=== PATIENT | female | born 1960 | race Two or more races ===

== ENCOUNTER 2020-12-31 10:42 | Emergency (ER) | payer MEDICAID, OTHER ==
[~2020-12-31] VITALS: Ht 167.6 cm; Wt 83.0 kg
[2020-12-31 11:34] LABS: Basophils # (auto) 0.1 10 ^3/uL (0-0.2); Basophils % (auto) 0.9 % (0.0-2.0); Eosinophils # (auto) 0.1 10 ^3/uL (0-0.8); Eosinophils % (auto) 1.5 % (0.0-7.0); Hematocrit 43.3 % (36.0-46.0); Hemoglobin 14.6 g/dL (12.2-16.2); Lymphocytes # (auto) 1.8 10 ^3/uL (0.4-5.4); Lymphocytes % (auto) 31.4 % (10.0-50.0); Mean Corpuscular Hemoglobin 30.7 pg (28.0-32.0); Mean Corpuscular Hgb Conc. 33.7 g/dL (32.0-36.0); Mean Corpuscular Volume 91.1 fL (80.0-100.0); Monocytes # (auto) 0.2 10 ^3/uL (0-1.3); Monocytes % (auto) 4.1 % (0.0-12.0); Neutrophils # (auto) 3.6 10 ^3/uL (1.6-8.6); Neutrophils % (auto) 62.1 % (37.0-80.0); Nucleated Red Blood Cells % 0.1 %; Red Blood Cells 4.75 10^6/uL (4.0-5.20); Red Cell Distribution Width 13.1 % (11.8-14.3); White Blood Cell 5.9 10^3/uL (4.4-10.8)
[2020-12-31 11:52] LABS: Albumin 4.1 g/dL (3.4-5.0); Anion Gap 7 (5-15); Blood Urea Nitrogen 14 mg/dL (7-18); Carbon Dioxide 22 mmol/L (21-32); Chloride 106 mmol/L (98-107); Glucose 253 mg/dL (74-106); Potassium 4.2 mmol/L (3.5-5.1); Sodium 135 mmol/L (136-145)
[2020-12-31 11:58] LABS: Alanine Aminotransferase 27 U/L (13-56); Alkaline Phosphatase 97 U/L (45-117); Aspartate Aminotransferase 12 U/L (15-37); BUN/Creatinine Ratio 18.7; Bilirubin, Total 0.5 mg/dL (0.2-1.0); GFR African American 102 mL/min; GFR Non-African American 84 mL/min; Total Protein 8.1 g/dL (6.4-8.2)
[2020-12-31 16:45] VITALS: BP 142/85
== END 2020-12-31 17:56 | disposition home or self-care (01) ==
LOC: ER 10:42
DX: M47.812 Spondylosis without myelopathy or radiculopathy, cervical region (principal); E11.9 Type 2 diabetes mellitus without complications
CPT/HCPCS: 36415; 70450; 72125; 80053; 84484; 85025; 93005

== ENCOUNTER 2025-08-01 10:13 | Inpatient (IN) | payer MEDICAID ==
[~2025-08-01] VITALS: Ht 167.6 cm; Wt 83.1 kg
[~2025-08-01 10:13] MED LIST: ATOR20TA50 PO; DOXY-286 PO; DULA1INJ SC; GAB100C PO; HYDR12.55 PO; INSU1INJ19 SC; LISI20TA56 PO; METF-372 PO
[2025-08-01 11:03] LABS: Hematocrit 40.0 % (36.0-46.0); Hemoglobin 13.2 g/dL (12.2-16.2); Mean Corpuscular Hemoglobin 29.6 pg (28.0-32.0); Mean Corpuscular Volume 89.7 fL (80.0-100.0); Nucleated Red Blood Cells % 0.0 %
[2025-08-01 11:07] LABS: Chloride 102 mmol/L (98-107); Potassium 4.4 mmol/L (3.5-5.1); Sodium 137 mmol/L (136-145)
[2025-08-01 11:08] LABS: Anion Gap 9 (5-15); Carbon Dioxide 26 mmol/L (20-31)
[2025-08-01 11:09] LABS: Calcium 9.7 mg/dL (8.7-10.4)
--- NOTE | 2025-08-01 11:13 | ED.PDOC ---
GI ASSESSMENT HPI Comments This is a 64 year old female presenting to the ED with chief complaint of abdominal pain. Patient reports that she has been experiencing RUQ abdominal pain with associated nausea for the past 6 days. Patient relays that she had a previous UTI that she finished treatment for with Macrobid, last dose this morning. Patient states her last BM was this morning and was normal. Patient denies any vomiting, diarrhea, chest pain, dizziness, fever, dysuria, or chills. Chief Complaint: Abdominal Pain Time Seen by MD: 11:11 Primary Care Provider: UNKNOWN Reviewed Notes: Nurses Notes, Medications, Allergies Allergies: Coded Allergies: NO KNOWN ALLERGIES (Unverified , 12/31/20) Home Meds Active Scripts Doxycycline Hyclate (DOXYCYCLINE HYCLATE) 100 Mg Tab, 1 TAB PO BID, #14 TAB Prov:SANTI OLIVEROS MD 08/17/24 Reported Medications Dulaglutide (Trulicity) 0.75 Mg/0.5 Ml Inj, SC QWEEKLY 08/15/24 Insulin Glargine (Basaglar Kwikpen) 100 Unit/Ml Inj, 20 UNITS SC HS 08/15/24 Gabapentin (Gabapentin) 100 Mg Cap, 1-3 CAP PO HS Take 1 to 3 capsules by mouth every night. 08/15/24 Atorvastatin Calcium (ATORVASTATIN CALCIUM) 20 Mg Tab, 1 TAB PO DAILY 08/15/24 Lisinopril (Lisinopril) 20 Mg Tab, 10 MG PO DAILY, TAB 08/15/24 Metformin Hydrochloride (Metformin Hcl) 1,000 Mg Tab, 1 TAB PO BID 08/15/24 Hydrochlorothiazide (Hydrochlorothiazide) 12.5 Mg Tab, 1 TAB PO DAILY 08/15/24 Information Source: Patient, Spouse Mode of Arrival: Ambulatory Timing: Days Duration: Since onset Prehospital treatment: None Quality: Sharp Vomitus: None Stool: Normal Severity: Moderate Recent: None Recent Hx of: None Pain Location: RUQ Modifying Factors: Nothing Associated sign and symptoms: Nausea, Abdominal Pain Past Medical History PAST MEDICAL HISTORY: DM, UTI'S Surgical History: Denies all surgeries 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 Family History Family History: Reviewed,noncontributory to illness Social History Smoker: Non-Smoker Alcohol: Denies ETOH Use Drugs: Denies Drug Use Lives In: Home Constitutional: denies: chills, diaphoresis, fatigue, fever, malaise, sweats, weakness, others EENTM: denies: blurred vision, double vision, ear bleeding, ear discharge, ear drainage, ear pain, ear ringing, eye pain, eye redness, hearing loss, mouth pain, mouth swelling, nasal discharge, nose bleeding, nose congestion, nose pain, photophobia, tearing, throat pain, throat swelling, voice changes, others Respiratory: denies: cough, hemoptysis, orthopnea, SOB at rest, shortness of breath, SOB with excertion, stridor, wheezing, others Cardiovascular: denies: chest pain, dizzy spells, diaphoresis, Dyspnea on exertion, edema, irregular heart beat, left arm pain, lightheadedness, palpitations, PND, syncope, others Gastrointestinal: reports: abdominal pain, nausea; denies: abdomen distended, blood streaked bowels, constipated, diarrhea, dysphagia, difficulty swallowing, hematemesis, melena, poor appetite, poor fluid intake, rectal bleeding, rectal pain, vomiting, others Genitourinary: denies: abnormal vagina bleeding, burning, dyspareunia, dysuria, flank pain, frequency, hematuria, incontinence, pain, , vagina discharge, urgency, others Neurological: denies: dizziness, fainting, headache, left sided numbness, left sided weakness, numbness, paresthesia, pre-existing deficit, right sided numbness, right sided weakness, seizure, speech problems, tingling, tremors, weakness, others Musculoskeletal: denies: back pain, gout, joint pain, joint swelling, muscle pain, muscle stiffness, neck pain, others Integumetry: denies: bruises, change in color, change in hair/nails, dryness, laceration, lesions, lumps, rash, wounds, others Allergic/Immunocompromised: denies: Difficulty Healing, Frequent Infections, Hives, Itching, others Hematologic/Lymphatic: denies: anemia, blood clots, easy bleeding, easy bruising, swollen glands, others Endocrine: denies: excessive hunger, excessive sweating, excessive thirst, excessive urination, flushing, intolerance to cold, intolerance to heat, unexplained weight gain, unexplained weight loss, others Psychiatric: denies: anxiety, bipolar disorder, depression, hopeless, panic disorder, schizophrenia, sleepless, suicidal, others All Other Systems: Reviewed and Negative Physical Exam General Appearance: No Apparent Distress, Normal HEENT: Normal ENT Inspection, Pharynx Normal, TMs Normal Neck: Full Range of Motion, Non-Tender, Normal, Normal Inspection Respiratory: Chest Non-Tender, Lungs Clear, No Accessory Muscle Use, No Respiratory Distress, Normal Breath Sounds Cardiovascular: No Edema, No JVD, No Murmur, No Gallop, Normal Peripheral Pulses, Regular Rate/Rhythm Breast Exam: Deferred Gastrointestinal: No Organomegaly, No Pulsatile Mass, Normal Bowel Sounds, Soft, Tenderness (RUQ tenderness) Genitalia: Deferred Pelvic: Deferred Rectal: Deferred Extremities: No calf tenderness, Normal capillary refill, Normal inspection, Normal range of motion, Non-tender, No pedal edema Musculoskeletal : Apperance: Normal Neurologic: Alert, drag out worker II-XII nml as Tested, No Motor Deficits, Normal Affect, Normal Mood, No Sensory Deficits Cerebellar Function: Normal Reflexes: Normal Skin: Dry, Normal Color, Warm Lymphatic: No Adenopathy Was a procedure done? Was a procedure done?: No GI differential Dx Differential Diagnosis: Gastritis/PUD, Gastroenteritis, GI hemorrhage, Hepatitis, Pancreatitis, PID, UTI, Urolithiasis, Dehydration, Electrolyte Im balance, Food Poisoning, Parasitic X-Ray, Labs, Meds, VS Vital Signs Date Time Temp Pulse Resp B/P (MAP) Pulse Ox O2 Delivery O2 Flow Rate FiO2 08/01/25 11:59 78 18 0/0 08/01/25 10:14 97.8 94 18 147/80 98 97.8 Lab Test 08/01/25 10:47 Range/Units White Blood Count 12.5 H 4.4-10.8 10^3/uL Red Blood Count 4.46 4.0-5.20 10^6/uL Hemoglobin 13.2 12.2-16.2 g/dL Hematocrit 40.0 36.0-46.0 % Mean Corpuscular Volume 89.7 80.0-100.0 fL Mean Corpuscular Hemoglobin 29.6 28.0-32.0 pg Mean Corpuscular Hemoglobin Concent 33.0 32.0-36.0 g/dL Red Cell Distribution Width 13.7 11.8-14.3 % Platelet Count 276 140-450 10^3/uL Mean Platelet Volume 8.6 6.9-10.8 fL Neutrophils (%) (Auto) 84.9 H 37.0-80.0 % Lymphocytes (%) (Auto) 7.6 L 10.0-50.0 % Monocytes (%) (Auto) 4.2 0.0-12.0 % Eosinophils (%) (Auto) 2.8 0.0-7.0 % Basophils (%) (Auto) 0.5 0.0-2.0 % Neutrophils # (Auto) 10.6 H 1.6-8.6 10 ^3/uL Lymphocytes # (Auto) 0.9 0.4-5.4 10 ^3/uL Monocytes # (Auto) 0.5 0-1.3 10 ^3/uL Eosinophils # (Auto) 0.4 0-0.8 10 ^3/uL Basophils # (Auto) 0.1 0-0.2 10 ^3/uL Nucleated Red Blood Cells 0.0 % Sodium Level 137 136-145 mmol/L Potassium Level 4.4 3.5-5.1 mmol/L Chloride Level 102 98-107 mmol/L Carbon Dioxide Level 26 20-31 mmol/L Anion Gap 9 5-15 Blood Urea Nitrogen 15 9-23 mg/dL Creatinine 0.79 0.550-1.02 mg/dL Glomerular Filtration Rate Calc 85 >90 mL/min BUN/Creatinine Ratio 19.0 10.0-20.0 Serum Glucose 289 H 74-106 mg/dL Calcium Level 9.7 8.7-10.4 mg/dL Current Medications Medications (Trade) Dose Ordered Sig/Nayeli Route Start Time Stop Time Status Last Admin Sodium Chloride 1,000 ml @ 1,000 mls/hr Q1H ONCE IV 08/01/25 11:15 08/01/25 12:14 DC 08/01/25 11:59 Morphine Sulfate 4 mg ONCE ONCE IV 08/01/25 11:15 08/01/25 11:16 DC 08/01/25 11:59 Ondansetron HCl (Zofran) 4 mg ONCE ONCE IV 08/01/25 11:15 08/01/25 11:16 DC 08/01/25 12:00 Time of 1ST Reevaluation: 12:10 Reevaluation 1ST: Unchanged Patient Education/Counseling: Diagnosis, Treatment Family Education/Counseling: Diagnosis, Treatment SEPSIS Sepsis Screen Date sepsis recognized/suspect: Aug 01, 2025 Time Sepsis recognized/suspect: 1016 Recent Procedure: No On Antibiotic Therapy: No Respiratory Rate >20: No Heart Rate >90: Yes Temp<36 C (96.8 F) or >38.3 C: No SBP <90 or MAP <65 mmHG: No New Acute Mental Status Change: No Is the patient on CPAP, BIPAP,: No Physician Orders Urinalysis (08/01/25 10:39) Ct Ab Pel With Iv Con Only (08/01/25 11:06) Vital Signs Date Time Temp Pulse Resp B/P (MAP) Pulse Ox O2 Delivery O2 Flow Rate FiO2 08/01/25 11:59 78 18 0/0 08/01/25 10:14 97.8 94 18 147/80 98 97.8 Laboratory Tests Test 08/01/25 10:47 White Blood Count 12.5 10^3/uL (4.4-10.8) H Medications Medications Dose Ordered Sig/Nayeli Route Start Time Stop Time Status Last Admin Dose Admin Morphine Sulfate 4 mg ONCE ONCE IV 08/01/25 11:15 08/01/25 11:16 DC 08/01/25 11:59 Ondansetron HCl 4 mg ONCE ONCE IV 08/01/25 11:15 08/01/25 11:16 DC 08/01/25 12:00 Sodium Chloride 1,000 ml @ 1,000 mls/hr Q1H ONCE IV 08/01/25 11:15 08/01/25 12:14 DC 08/01/25 11:59 Departure 1 Departure Time of Disposition: 13:35 (Patient presented with abdominal pain that was concerning for possible appendicits, gastritis, cholecystitis, colitis, gastroenteritis, sbo, or orther possible surgical emergency. Data: 1. I ordered and reviewed the result of at least 3 labs including a CBC, BMP, and Urinalysis. 2. I independently interpreted the following tests: CT Abdoment and Pelvis is concerning for pyelonephritis.Risk:This patient has a high risk of morbidity due to further diagnostic testing or treatment and may suffer from an acute abdominal process disorder. Workup reveals pyelonephritis and patient should be admitted for further workup. and possible expert consultation. ) Impression: Primary Impression: Acute pyelonephritis Additional Impression: Intractable abdominal pain Disposition: ADMITTED INPATIENT Admit to: Med Surg Condition: Guarded Critical Care Note Critical Care Time?: Yes Critical care comment: Intractable abdominal pain Authorized and Performed by: Barbara Membreno MD Total critical care time: Approximately 38 minutes Due to a high probability of clinically significant, life threatening deterioration, the patient required my highest level of preparedness to intervene emergently and I personally spent this critical care time directly and personally managing the patient. This critical care time included obtaining a history; examining the patient; pulse oximetry; ordering and review of studies; arranging urgent treatment with development of a management plan; evaluation of patient's response to treatment; frequent reassessment; and, discussions with other providers. This critical care time was performed to assess and manage the high probability of imminent, life-threatening deterioration that could result in multi-organ failure. It was exclusive of separately billable procedures and treating other patients and teaching time. Please see my other sections and the rest of the note for further information on patient assessment and treatment. Stability Stability form required: No Heart Score Heart Score: Heart Score Response (Comments) Value History N/A 0 EKG N/A 0 Age N/A 0 Risk Factors N/A 0 Troponin N/A 0 Total 0 I personally scribed for BARBARA MEMBRENO MD ([email or web address]) on 08/01/25 at 11:13. Electronically submitted by Rito Braun ([email or web address]). BARBARA MEMBRENO MD Aug 01, 2025 11:13
[2025-08-01 11:14] LABS: BUN/Creatinine Ratio 19.0 (10.0-20.0); Blood Urea Nitrogen 15 mg/dL (9-23); Glucose 289 mg/dL (74-106)
[2025-08-01] MEDS: SODIUM CHLORIDE 0.9% 1,000 ML IV ONE ×2 (11:59→15:11)
[2025-08-01] MEDS: MORPHINE SULFATE 4 MG/ML SYR/VIAL IV ONE (11:59)
[2025-08-01] MEDS: ONDANSETRON HCL 4 MG/2 ML VIAL IV ONE (12:00)
--- NOTE | 2025-08-01 13:06 | DVH ---
Indication: abdominal pain Technique: CT axial images of the abdomen and pelvis are obtained with contrast. Coronal and sagittal reformats were obtained. Radiation Dose Information: CTDI volume is 14.01 mGy. Dose-length product is 858 mGy*cm Comparison: None FINDINGS: Lung bases demonstrate atelectasis.m Adrenal glands unremarkable. Spleen measures 13 cm AP. Pancreas unremarkable cholecystectomy. No en hancing hepatic lesion. Kidneys demonstrate no hydronephrosis. Bilateral perinephric stranding. Possible right renal striated nephrogram. Stomach partially distended. Small bowel loops are normal in caliber. Colonic diverticula. Moderate volume stool in the colon. Normal appendix. Abdominal aorta normal in caliber. Atherosclerotic disease. Bladder partially distended. No free pe lvic fluid. No inguinal lymphadenopathy. Paraumbilical hernia containing fat measuring 2.4 cm. Supraumbilical hernia containing fat measuring 2.6 cm. No aggressive osseous process. [id number] thoracolumbar degenerative disc disease. IMPRESSION: Limited evaluation without contrast. Bilateral perinephric stranding / edema. Right renal striated nephrogram. Findings are suggestive o f pyelonephritis. Correlate with appropriate lab values. Cholecystectomy. Splenomegaly Fat containing periumbilical and supraumbilical hernias as described. Other findings as described.
[2025-08-01] MEDS: IOHEXOL 300 MG/ML 100ML BOTTLE IJ ONE (13:57)
[2025-08-01 14:09] LABS: Urine Protein, UAD Negative (Negative)
[2025-08-01 14:58] LABS: Lactic Acid w/Reflex 3.3 mmol/L (0.4-2.0)
[2025-08-01] MEDS: CEFEPIME 2GM/50ML NS 50 ML IV ONE (15:11)
[2025-08-01 15:52] VITALS: PULSE 77; RESP 18; O2SAT 97
[2025-08-01] MEDS ORDERED: MORPHINE SULFATE INJ 2 MG/ml SYRG IV PRN (22:30)
[2025-08-01] MEDS ORDERED: NITROGLYCERIN 0.4 MG SL TAB SL PRN (22:30)
[2025-08-01] MEDS ORDERED: DOCUSATE SOD 100 MG CAP PO PRN (22:30)
[2025-08-01] MEDS ORDERED: ONDANSETRON HCL 4 MG/2 ML VIAL IV PRN (22:30)
[2025-08-01 23:15] VITALS: BP 140/74; PULSE 76; RESP 19; TEMP 98; O2SAT 95
[2025-08-01] MEDS: LACTATED RINGER'S 1,000 ML IV SCH (23:54)
[2025-08-02] VITALS (8 sets, daily range): BP systolic 133–150; BP diastolic 63–81; PULSE 74–80; RESP 17–20; TEMP 97.7–98.1; O2SAT 93–98
[2025-08-02] MEDS: CEFEPIME 2GM/50ML NS 50 ML IV ONE (01:34)
[2025-08-02 02:49] LABS: Albumin 3.9 g/dL (3.2-4.8); Bilirubin, Direct 0.2 mg/dL (<0.3); Bilirubin, Total 0.7 mg/dL (0.2-1.0); Total Protein 6.6 g/dL (5.7-8.2)
[2025-08-02 02:51] LABS: Lactic Acid w/Reflex 2.2 mmol/L (0.4-2.0)
[2025-08-02] MEDS ORDERED: INSU100I61 SC (02:54)
[2025-08-02 02:59] LABS: INR 1.04 (0.9-1.15); Prothrombin Time 11.0 sec (9.3-11.8)
[2025-08-02 03:36] LABS: Alanine Aminotransferase 109.0 U/L (7-40); Alkaline Phosphatase 263.0 U/L (46-116)
[2025-08-02] MEDS ORDERED: PANT40T PO (05:29)
[2025-08-02] MEDS ORDERED: DEXTROSE (50%) 50ML SYRG IV PRN (05:30)
--- NOTE | 2025-08-02 05:32 | DVHHPRES ---
History of Present Illness Resident Creating Document: FRANCY SCRUGGS RESIDENT History of Present Illness Amber Hua 64-year-old female with past medical history of hypertension, diabetes mellitus, hyperlipidemia, recurrent UTIs, who came to the ED with chief complaints of 9/10 right upper quadrant pain, right flank, co nstant pain which is radiating to the umbilicus. Patient also states she had a recent UTI 2 weeks ago, was given Macrobid for 7 days which she finished, stated she had burning sensation in her urine since 2 weeks. Patient denies any fever, chills, vomiting, nausea, diarrhea, hematuria, frequency, constipation, headaches, dizziness. Patient is sexually active. Urinalysis shows positive signs of UTI. Abdominal CT examination showed bilateral perinephric stranding/edema, right renal striated nephrogram. And findings were suggestive of pyelonephritis. Cholecystectomy, splenomegaly, fat containing periumbilical and supraumbilical hernias. Patient is admitted for further management. Past surgical history: cholecystectomy, , right ankle surgery Family history: Reviewed, noncontributory Personal history: Denies smoking, drinking, any drug use Lives with: Family PCP: Dr. Lawton Review of Systems Constitutional: No: Fever, Chills, Sweats, Weakness, Malaise, Other Eyes: No: Pain, Vision change, Conjunctivae inflammation, Eyelid inflammation, Other, Redness ENT: No: Ear pain, Ear discharge, Nose pain, Nose discharge, Nose congestion, Mouth pain, Mouth swelling, Throat pain, Throat swelling, Other Respiratory: No: Cough, Dry, Shortness of breath, SOB with excertion, Wheezing, Hemoptysis, Pleuritic Pain, Sputum, Wheezing, Other Cardiovascular: No: Chest Pain, Palpitations, Orthopnea, Paroxysmal Noc. Dyspnea, Edema, Lt Headedness, Other Gastrointestinal: Nausea, Vomiting, Abdominal Pain; No: Diarrhea, Constipation, Melena, Hematochezia, Other Genitourinary: Dysuria; No Frequency, No Incontinence, No Hematuria, No Retention; Other (Right flank pain) Musculoskeletal: No: other, neck pain, shoulder pain, arm pain, back pain, hand pain, leg pain, foot pain Skin: No: Rash, Lesions, Jaundice, Bruising, Other Neurological: No: Weakness, Numbness, Incoordination, Change in speech, Confusion, Seizures, Other Allergies: Coded Allergies: NO KNOWN ALLERGIES (Unverified , 12/31/20) Medications Current Medications Medications Dose Ordered Sig/Nayeli Route Start Time Stop Time Status Last Admin Dose Admin Ondansetron HCl 4 mg Q4HP PRN IV 08/01/25 22:30 Docusate Sodium 100 mg BIDPRN PRN PO 08/01/25 22:30 Nitroglycerin 0.4 mg Q5MINP PRN SL 08/01/25 22:30 Morphine Sulfate 2 mg Q30M PRN IV 08/01/25 22:30 Lactated Ringer's 1,000 ml @ 75 mls/hr [id number] IV 08/01/25 23:30 08/01/25 23:54 75 MLS/HR Atorvastatin Calcium 40 mg HS PO 08/02/25 22:00 Exam Vital Signs Vital Signs Date Time Temp Pulse Resp B/P (MAP) Pulse Ox O2 Delivery O2 Flow Rate FiO2 08/02/25 00:59 98.0 76 19 140/74 (96) 95 98.0 08/01/25 23:27 Room Air* 0 21 Exam General: Patient alert and oriented in person, place and time. Patient following commands. In moderate distress HEENT: Normocephalic, atraumatic, moist mucous membranes Respiratory/pulmonary: Clear lungs bilaterally, vesicular murmurs present in almost all lung orta, no associated crackles or wheezes. Cardiovascular: Normal heart sounds S1 and S2 with no associated murmurs Abdomen: Right upper quadrant tenderness, right CVA tenderness, Extremities: Mild pitting edema. Peripheral Pulses: 3+ Radial (R). 3+ Radial (L). 3+ Dorsalis pedis (R). 3+ Dorsalis pedis(L) Skin: No rashes or pruritus, there is no sacral edema present at this time. Neurological: Intact cranial nerves with no focal neurologic deficits Psych/mood: Psych/mood normal Labs/Xrays Labs Test 08/02/25 01:28 08/01/25 12:00 08/01/25 10:47 Range/Units Prothrombin Time 11.0 9.3-11.8 sec Prothrombin Time INR 1.04 0.9-1.15 Hemoglobin A1c 8.9 H <5.7 % A1C Lactic Acid Level 2.2 *H 0.4-2.0 mmol/L Total Bilirubin 0.7 0.2-1.0 mg/dL Direct Bilirubin 0.2 <0.3 mg/dL Aspartate Amino Transferase (AST) 93 H 13-40 U/L Alanine Aminotransferase (ALT) 109 H 7-40 U/L Alkaline Phosphatase 263 H 46-116 U/L Total Protein 6.6 5.7-8.2 g/dL Albumin 3.9 3.2-4.8 g/dL Urine Color Light-yellow Yellow Urine Clarity Clear Clear Urine pH 5.0 5.0-9.0 Urine Specific [place] 1.012 1.001-1.035 Urine Protein Negative Negative Urine Ketones Negative Negative Urine Blood Negative Negative /uL Urine Nitrite Negative Negative Urine Bilirubin Negative Negative Urine Urobilinogen Normal Negative mg/dL Urine Leukocyte Esterase 2+ Negative /uL Urine RBC 1 0 - 4 /hpf Urine Microscopic WBC 7 H 0-5 /HPF Urine Squamous Epithelial Cells Few <5 /hpf Urine Uric Acid Crystals Few None Seen /hpf Urine Bacteria Few H None Seen /hpf Urine Glucose 1+ H Normal mg/dL White Blood Count 12.5 H 4.4-10.8 10^3/uL Red Blood Count 4.46 4.0-5.20 10^6/uL Hemoglobin 13.2 12.2-16.2 g/dL Hematocrit 40.0 36.0-46.0 % Mean Corpuscular Volume 89.7 80.0-100.0 fL Mean Corpuscular Hemoglobin 29.6 28.0-32.0 pg Mean Corpuscular Hemoglobin Concent 33.0 32.0-36.0 g/dL Red Cell Distribution Width 13.7 11.8-14.3 % Platelet Count 276 140-450 10^3/uL Mean Platelet Volume 8.6 6.9-10.8 fL Neutrophils (%) (Auto) 84.9 H 37.0-80.0 % Lymphocytes (%) (Auto) 7.6 L 10.0-50.0 % Monocytes (%) (Auto) 4.2 0.0-12.0 % Eosinophils (%) (Auto) 2.8 0.0-7.0 % Basophils (%) (Auto) 0.5 0.0-2.0 % Neutrophils # (Auto) 10.6 H 1.6-8.6 10 ^3/uL Lymphocytes # (Auto) 0.9 0.4-5.4 10 ^3/uL Monocytes # (Auto) 0.5 0-1.3 10 ^3/uL Eosinophils # (Auto) 0.4 0-0.8 10 ^3/uL Basophils # (Auto) 0.1 0-0.2 10 ^3/uL Nucleated Red Blood Cells 0.0 % Sodium Level 137 136-145 mmol/L Potassium Level 4.4 3.5-5.1 mmol/L Chloride Level 102 98-107 mmol/L Carbon Dioxide Level 26 20-31 mmol/L Anion Gap 9 5-15 Blood Urea Nitrogen 15 9-23 mg/dL Creatinine 0.79 0.550-1.02 mg/dL Glomerular Filtration Rate Calc 85 >90 mL/min BUN/Creatinine Ratio 19.0 10.0-20.0 Serum Glucose 289 H 74-106 mg/dL Calcium Level 9.7 8.7-10.4 mg/dL SEPSIS Sepsis Screen Date sepsis recognized/suspect: Aug 01, 2025 Time Sepsis recognized/suspect: 1016 Recent Procedure: No On Antibiotic Therapy: No Respiratory Rate >20: No Heart Rate >90: Yes Temp<36 C (96.8 F) or >38.3 C: No SBP <90 or MAP <65 mmHG: No New Acute Mental Status Change: No Is the patient on CPAP, BIPAP,: No Physician Orders Allergies (08/01/25 22:17) Code Status (08/01/25 22:17) Ondansetron Hcl (Zofran) (08/01/25 22:30) Docusate Sodium Capsule (Colace Capsule) (08/01/25 22:30) Fall Risk Precautions In Place QSHIFT (08/01/25 22:17) Complete Blood Count (08/02/25 04:00) Comprehensive Metabolic Panel (08/02/25 04:00) Npo (Nothing By Mouth) Diet (08/02/25 Breakfast) Condition: Serious (08/01/25 22:17) Nitroglycerin Sublingual (Ntrostat Subli (08/01/25 22:30) Morphine Sulfate Injection (08/01/25 22:30) Stat Ekg For Chest Pain (08/01/25 22:17) Notify Of Changes From Base (08/01/25 22:17) Casing Fluid Tender For 24 Hours (08/01/25 22:17) Emergency Dysrhythmia Protocol (08/01/25 22:17) Rhythm Strips Once Every Shift (08/01/25 22:17) Admit (08/01/25 23:19) Drug Screen (08/01/25 23:22) Lactated Ringer's (08/01/25 23:30) Atorvastatin (Lipitor) (08/02/25 22:00) Vital Signs Date Time Temp Pulse Resp B/P (MAP) Pulse Ox O2 Delivery O2 Flow Rate FiO2 08/02/25 00:59 98.0 76 19 140/74 (96) 95 98.0 08/01/25 23:27 Room Air* 0 21 08/01/25 22:54 81 18 138/73 (94) 98 Laboratory Tests Test 08/02/25 01:28 Lactic Acid Level 2.2 mmol/L (0.4-2.0) *H Medications Medications Dose Ordered Sig/Nayeli Route Start Time Stop Time Status Last Admin Dose Admin Cefepime HCl 50 ml @ 50 mls/hr ONCE ONCE IV 08/02/25 00:15 08/02/25 01:14 DC 08/02/25 01:34 50 MLS/HR Lactated Ringer's 1,000 ml @ 75 mls/hr [id number] IV 08/01/25 23:30 08/01/25 23:54 75 MLS/HR Assessment/Plan Assessment/Plan # sepsis due to pyelonephritis # recurrent UTIs - IV fluids - IV cefepime -check serum lactate - Abdominal CT Showed Bilateral perinephric stranding / edema. Right renal striated nephrogram. Findings are suggestive of pyelonephritis. # uncontrolled diabetes mellitus HbA1c 8.9 -moderate insulin sliding scale # hypertension - continue home meds # hyperlipidemia - atorvastatin 40 mg # transaminitis - monitor labs # Splenomegaly # Periumbilical hernia -follow up outpatient # supraumbilical hernia -follow-up outpatient # status post cholecystectomy PPI prophylaxis: Protonix 40 mg DVT prophylaxis: Not indicated Goals of care addressed with the patient for more than 31 minutes: Full code status Case discussed with , patient and nurse Plan discussed with: Patient My Orders Orders - FRANCY SCRUGGS RESIDENT Procedure Category Date Status Time Allergies SHAE 08/01/25 In Process 22:17 Code Status CODE 08/01/25 Transmitted 22:17 Ondansetron Hcl PHA 08/01/25 In Process (Zofran) 22:30 Docusate Sodium PHA 08/01/25 In Process Capsule (Colace 22:30 Fall Risk Precautions SHAE 08/01/[address] 22:17 Complete Blood Count LAB 08/02/25 Logged 04:00 Comprehensive LAB 08/02/25 Logged Metabolic Panel 04:00 Npo (Nothing By DIET 08/02/25 Transmitted Mouth) Diet Breakfast Condition: Serious SHAE 08/01/25 In Process 22:17 Nitroglycerin PHA 08/01/25 In Process Sublingual (Ntrostat 22:30 Morphine Sulfate PHA 08/01/25 In Process Injection 22:30 Stat Ekg For Chest SHAE 08/01/25 In Process Pain 22:17 Notify Md Of Changes [facility] 08/01/25 In Process From Base 22:17 Casing Fluid Tender For [facility] 08/01/25 In Process 24 Hours 22:17 Emergency Dysrhythmia [facility] 08/01/25 In Process Protocol 22:17 Rhythm Strips Once [facility] 08/01/25 In Process Every Shift 22:17 Admit ADMIT 08/01/25 Transmitted 23:19 Drug Screen LAB 08/01/25 Logged 23:22 Lactated Ringer's PHA 08/01/25 In Process 23:30 Atorvastatin (Lipitor) PHA 08/02/25 In Process 22:00 Date of Service: Aug 02, 2025 Billing Provider: JAMIA MAYNARD MD Common Visit Codes: 22089-DQSGAAO INP/OBS CARE (HIGH) Secondary Visit Codes: 60531-[id number] CARE PLAN 30 MINUTES FRANCY SCRUGGS RESIDENT Aug 02, 2025 05:32
[2025-08-02] MEDS: ACCU-CHEK COMFORT CURVE STRIP VI SCH (07:09)
[2025-08-02] MEDS: InsuLIN REG 1unit/0.01ml Soln (100units/ml) SC SCH ×2 (07:13→20:54)
[2025-08-02 07:38] LABS: Albumin 4.0 g/dL (3.2-4.8); Anion Gap 7 (5-15); BUN/Creatinine Ratio 14.5 (10.0-20.0); Blood Urea Nitrogen 11 mg/dL (9-23); Calcium 8.8 mg/dL (8.7-10.4); Carbon Dioxide 29 mmol/L (20-31); Chloride 103 mmol/L (98-107); Potassium 4.4 mmol/L (3.5-5.1); Sodium 139 mmol/L (136-145); Total Protein 6.7 g/dL (5.7-8.2)
[2025-08-02 07:39] LABS: Bilirubin, Total 0.7 mg/dL (0.2-1.0)
[2025-08-02 07:42] LABS: Alanine Aminotransferase 100 U/L (7-40); Alkaline Phosphatase 246 U/L (46-116); Glucose 248 mg/dL (74-106); Hematocrit 35.3 % (36.0-46.0); Hemoglobin 12.0 g/dL (12.2-16.2); Mean Corpuscular Hemoglobin 30.4 pg (28.0-32.0); Mean Corpuscular Volume 89.5 fL (80.0-100.0); Nucleated Red Blood Cells % 0.0 %
--- NOTE | 2025-08-02 09:29 | DVH ---
INDICATION: rule out the pathology TECHNIQUE: Multiple real-time sonographic images of the abdomen were obtained. COMPARISON: None FINDINGS: The liver is heterogeneous in echogenicity. The liver measures 17cm. No intrahepatic bilia ry ductal dilatation is noted. Gallbladder surgically removed. The right kidney measures 11cm. No hydronephrosis. The pancreas is not well visualized due to obscuration from bowel gas. The visualized portions of the IVC and aorta are grossly unremarkable. IMPRESSION: Hepatic steatosis.
[2025-08-02] MEDS: LISINOPRIL 20 MG TAB PO SCH (10:20)
[2025-08-02 12:13] LABS: Opiate Scree,Urine Neg (NEGATIVE)
[2025-08-02 12:14] LABS: Amphetamine Screen, Urine Neg (NEGATIVE); Barbiturate Scree,Urine Neg (NEGATIVE); Benzodiazephine Screen, Urine Neg (NEGATIVE); Cannabinoid Screen, Urine Neg (NEGATIVE); Cocaine Screen, Urine Neg (NEGATIVE); Phencyclidine Screen, Urine Neg (NEGATIVE)
[2025-08-02] MEDS ORDERED: CEFEPIME 2GM/50ML NS 50 ML IV SCH (14:00)
--- NOTE | 2025-08-02 19:10 | DVHPNRES ---
Progress Note Date Seen: Aug 02, 2025 Resident Creating Document: ORALIA TORO RESIDENT Medical Necessity Reason Pt with a Central, PICC or Fol: No Subjective Review of Systems This is a 64-year-old female with past medical history of type 2 diabetes mellitus, hyperlipidemia, hypertension, glucose, recurrent UTIs, patient came to ER with a complaint of right flank pain which is constant, sharp in nature, 10/ before came to ER, no aggravating factor/relieving factor associated with dysuria but denies any hematuria. Patient went to primary care physician and prescribed nitrofurantoin 6 days back and symptoms is getting worse day by day. She had history of recurrent UTI. Patient denies any fever, chills, vomiting, nausea, diarrhea, hematuria, frequency, constipation, headaches, dizziness. Past medical history: As above Past surgical history: cholecystectomy, , right ankle surgery Family history: Mother -f [place] Personal history: Denies smoking, drinking, any drug use Lives with: Family PCP: Dr. Lawton Home medication: Atorvastatin, gabapentin, HCTZ, insulin aspart, lisinopril, metformin, pantoprazole, latanoprost, Basaglar. Patient seen and evaluated in bedside. Encouraged patient to increase oral fluid as tolerated. Continue IVF and IV antibiotic. Right costovertebral angle tender on palpation but denies any fever, chest pain, headache, nausea and vomiting. Objective vital signs Vital Sign Date Time Temp Pulse Resp B/P (MAP) Pulse Ox O2 Delivery O2 Flow Rate FiO2 08/02/25 17:00 97.8 77 17 133/63 (86) 94 97.8 08/02/25 08:00 Room Air* 0 21 Total Intake and Output 08/01/25 08/01/25 08/02/25 15:00 23:00 07:00 Intake Total 1050 ml 50 ml Balance 1050 ml 50 ml medications Current Medications Medications Dose Ordered Sig/Nayeli Route Start Time Stop Time Status Last Admin Dose Admin Ondansetron HCl 4 mg Q4HP PRN IV 08/01/25 22:30 Docusate Sodium 100 mg BIDPRN PRN PO 08/01/25 22:30 Lactated Ringer's 1,000 ml @ 75 mls/hr [id number] IV 08/01/25 23:30 08/02/25 14:33 75 MLS/HR Atorvastatin Calcium 40 mg HS PO 08/02/25 22:00 Lisinopril 10 mg DAILY PO 08/02/25 10:00 08/02/25 10:20 10 MG Gabapentin 100 mg HS PO 08/02/25 22:00 Diagnostic Test (Pha) 1 strip ACHS 08/02/25 07:00 08/02/25 17:22 1 STRIP Insulin Human Regular HS SC 08/02/25 22:00 Insulin Human Regular AC SC 08/02/25 07:00 08/02/25 17:22 9 UNITS Dextrose 50 ml UD PRN IV 08/02/25 05:30 Cefepime HCl 50 ml @ 12.5 mls/hr Q8HR IV 08/02/25 14:00 Cancel Ceftriaxone Sodium 50 ml @ 100 mls/hr DAILY@09 IV 08/03/25 09:00 Examination Constitutional: No: Fever, Chills, Sweats, Weakness, Malaise Eyes: No: Pain, Vision change, Conjunctivae inflammation, Eyelid inflammation ENT: No: Ear pain, Ear discharge, Nose pain, Nose discharge, Nose congestion, Mouth pain, Mouth swelling, Throat pain, Throat swelling, Respiratory: No: Cough, Dry, Shortness of breath, SOB with excertion, Wheezing Cardiovascular: No: Chest Pain, Palpitations, Orthopnea, Paroxysmal Noc. Dyspnea, Edema, Lt Headedness Gastrointestinal: No: Diarrhea, Constipation, Melena, Hematochezia, right costovertebral angle tender on deep palpation Genitourinary: Positive for Dysuria; No Frequency, No Incontinence, No Hematuria, Right flank pain Musculoskeletal: No: other, neck pain, shoulder pain, arm pain, back pain, hand pain, leg pain, foot pain Skin: No: Rash, Lesions, Jaundice, Bruising, Other Neurological: No: Weakness, Numbness, Incoordination, Change in speech, Confusion, Seizures laboratory and microbiology Laboratory Tests 08/02/25 06:43 Test 08/02/25 06:43 Range/Units Serum Glucose 248 H 74-106 mg/dL Microbiology Date/Time Source Procedure Growth Status 08/01/25 13:55 Blood Blood Culture - Preliminary NO GROWTH AFTER 24 HOURS OF INCUBATION. Resulted Problem List/Assessment/Plan Problem List/Assessment/Plan #SIRS not sepsis #pyelonephritis # complicated urinary tract infection - IV fluids - Abdominal CT Showed Bilateral perinephric stranding / edema. Right renal striated nephrogram. Findings are suggestive of pyelonephritis. -cefepime switch to ceftriaxone -urine culture #Lactic acidosis Lactic acid level 2.9> 2.3> 1.2 # Diabetes mellitus with hyperglycemia, HbA1c 8.9 -moderate insulin sliding scale -monitor blood sugars # Essential hypertension - continue home meds Lisinopril and hydrochlorothiazide Monitor blood pressure # Hyperlipidemia - atorvastatin 40 mg # Glaucoma Continue latanoprost # Transaminitis - monitor labs # Splenomegaly # Periumbilical hernia -follow up outpatient # supraumbilical hernia -follow-up outpatient #Paraumbilical hernia , containing fat 2.4 cm # Status post cholecystectomy Diet: Carbohydrate consistent PPI prophylaxis: Protonix 40 mg DVT prophylaxis: Not indicated Goals of care discussions. More than 21 minute spent with patient. Full code status. Case discussed with Dr. Verdugo Plan discussed with: Patient, Other (Nurse) My Orders My Orders Orders - ORALIA TORO Procedure Category Date Status Time Consistent DIET 08/02/25 Transmitted Carb(Ccho)Diabetes Lunch Ceftriaxone 1gm/50ml PHA 08/03/25 In Process (Rocephin) 09:00 Date of Service: Aug 02, 2025 Billing Provider: CORNELL VERDUGO MD Common Visit Codes: [id number] INP/OBS CARE(HIGH) ORALIA TORO Aug 02, 2025 19:10 CORNELL VERDUGO MD Aug 02, 2025 21:49
[2025-08-02] MEDS: GABAPENTIN 100 MG CAP PO SCH (20:47)
[2025-08-02] MEDS: ATORVASTATIN 20 MG TAB PO SCH (20:47)
[2025-08-02] MEDS: LATANOPROST 0.005 % OPTH(EYE) SOL 2.5ML EACHEYE SCH (22:00)
[2025-08-03] VITALS (8 sets, daily range): BP systolic 132–150; BP diastolic 75–82; PULSE 66–80; RESP 17–19; TEMP 36.7; O2SAT 95–100
[2025-08-03 06:11] LABS: Hematocrit 35.8 % (36.0-46.0); Hemoglobin 12.3 g/dL (12.2-16.2); Mean Corpuscular Hemoglobin 30.6 pg (28.0-32.0); Mean Corpuscular Volume 89.0 fL (80.0-100.0); Nucleated Red Blood Cells % 0.1 %
[2025-08-03 06:24] LABS: Chloride 104 mmol/L (98-107); Potassium 3.8 mmol/L (3.5-5.1); Sodium 141 mmol/L (136-145)
[2025-08-03 06:25] LABS: Anion Gap 9 (5-15); Carbon Dioxide 28 mmol/L (20-31)
[2025-08-03 06:26] LABS: Calcium 8.9 mg/dL (8.7-10.4)
[2025-08-03 06:31] LABS: BUN/Creatinine Ratio 14.9 (10.0-20.0); Blood Urea Nitrogen 11 mg/dL (9-23)
[2025-08-03 06:42] LABS: Glucose 243 mg/dL (74-106)
[2025-08-03] MEDS: hydroCHLOROthiazide 25 MG TAB PO SCH (09:14)
--- NOTE | 2025-08-03 21:31 | DVHDSRES ---
Discharge Summary Date of Admission Resident Creating Document: DAYANA RAO Aug 01, 2025 at 22:17 Date of Discharge: Aug 03, 2025 Admitting Diagnosis Acute pyelonephritis Labs/Diagnostic Data: Laboratory Results Test 08/03/25 11:26 08/03/25 05:55 08/02/25 11:30 08/02/25 06:47 POC Glucose 344 mg/dl (70-106) White Blood Count 5.4 10^3/uL (4.4-10.8) Red Blood Count 4.02 10^6/uL (4.0-5.20) Hemoglobin 12.3 g/dL (12.2-16.2) Hematocrit 35.8 % (36.0-46.0) Mean Corpuscular Volume 89.0 fL (80.0-100.0) Mean Corpuscular Hemoglobin 30.6 pg (28.0-32.0) Mean Corpuscular Hemoglobin Concent 34.4 g/dL (32.0-36.0) Red Cell Distribution Width 13.7 % (11.8-14.3) Platelet Count 257 10^3/uL (140-450) Mean Platelet Volume 8.3 fL (6.9-10.8) Neutrophils (%) (Auto) 54.5 % (37.0-80.0) Lymphocytes (%) (Auto) 31.0 % (10.0-50.0) Monocytes (%) (Auto) 7.2 % (0.0-12.0) Eosinophils (%) (Auto) 6.4 % (0.0-7.0) Basophils (%) (Auto) 0.9 % (0.0-2.0) Neutrophils # (Auto) 3.0 10 ^3/uL (1.6-8.6) Lymphocytes # (Auto) 1.7 10 ^3/uL (0.4-5.4) Monocytes # (Auto) 0.4 10 ^3/uL (0-1.3) Eosinophils # (Auto) 0.3 10 ^3/uL (0-0.8) Basophils # (Auto) 0.1 10 ^3/uL (0-0.2) Nucleated Red Blood Cells 0.1 % Sodium Level 141 mmol/L (136-145) Potassium Level 3.8 mmol/L (3.5-5.1) Chloride Level 104 mmol/L (98-107) Carbon Dioxide Level 28 mmol/L (20-31) Anion Gap 9 (5-15) Blood Urea Nitrogen 11 mg/dL (9-23) Creatinine 0.74 mg/dL (0.550-1.02) Glomerular Filtration Rate Calc 91 mL/min (>90) BUN/Creatinine Ratio 14.9 (10.0-20.0) Serum Glucose 243 mg/dL (74-106) Calcium Level 8.9 mg/dL (8.7-10.4) Thyroid Stimulating Hormone (TSH) 1.07 uIU/mL (0.55-4.78) Urine Opiates Screen Neg (NEGATIVE) Urine Fentanyl Screen Neg (NEGATIVE) Urine Barbiturates Screen Neg (NEGATIVE) Urine Phencyclidine Screen Neg (NEGATIVE) Urine Amphetamines Screen Neg (NEGATIVE) Urine Benzodiazepines Screen Neg (NEGATIVE) Urine Cocaine Screen Neg (NEGATIVE) Urine Cannabinoids Screen Neg (NEGATIVE) Lactic Acid Level 1.3 mmol/L (0.4-2.0) Test 08/02/25 06:43 08/02/25 01:28 08/01/25 12:00 Total Bilirubin 0.7 mg/dL (0.2-1.0) Aspartate Amino Transferase (AST) 65 U/L (13-40) Alanine Aminotransferase (ALT) 100 U/L (7-40) Alkaline Phosphatase 246 U/L (46-116) Total Protein 6.7 g/dL (5.7-8.2) Albumin 4.0 g/dL (3.2-4.8) Lipase 29 U/L (12-53) Prothrombin Time 11.0 sec (9.3-11.8) Prothrombin Time INR 1.04 (0.9-1.15) Hemoglobin A1c 8.9 % A1C (<5.7) Direct Bilirubin 0.2 mg/dL (<0.3) Urine Color Light-yellow (Yellow) Urine Clarity Clear (Clear) Urine pH 5.0 (5.0-9.0) Urine Specific [place] 1.012 (1.001-1.035) Urine Protein Negative (Negative) Urine Ketones Negative (Negative) Urine Blood Negative /uL (Negative) Urine Nitrite Negative (Negative) Urine Bilirubin Negative (Negative) Urine Urobilinogen Normal mg/dL (Negative) Urine Leukocyte Esterase 2+ /uL (Negative) Urine RBC 1 /hpf (0 - 4) Urine Microscopic WBC 7 /HPF (0-5) Urine Squamous Epithelial Cells Few /hpf (<5) Urine Uric Acid Crystals Few /hpf (None Seen) Urine Bacteria Few /hpf (None Seen) Urine Glucose 1+ mg/dL (Normal) Other Laboratory Tests 08/03/25 05:55 Brief Hx & Hospital Course: 64-year-old female with past medical history of type 2 diabetes mellitus, hypertension, hyperlipidemia, recurrent UTIs and glaucoma presented with right flank pain of 10/10 intensity associated with dysuria. Brief hospital course: Pyelonephritis with SIRS, requiring IV fluids and IV antibiotics (Cefepime and later Ceftriaxone). Completed CT abdomen pelvis which showed bilateral perinephric stranding/edema and right renal striated nephrogram, findings suggestive of pyelonephritis. Her lactic acid level was initially elevated but improved with supportive care. Blood glucose was monitored and was managed with moderate insulin sliding scale. Blood pressure remained stable with home medications lisinopril and hydrochlorothiazide. Patient hemodynamically stable, asymptomatic, in conditions to be discharged home. Was granted under optimal medical therapy (Keflex and glucose monitor), gave advice on healthy life style habits and follow up with PCP, discharge clinic and mammalogist). Goals of care discussed with patient for over 18 minutes: Full code status Discussed plan with Dr Christensen, patient and nurses. Pt is lying on bed General Appearance: Alert, Oriented X3, Cooperative, Mild distress HEENT: Atraumatic, Mucous membranes moist/pink Respiratory: Clear to auscultation, Normal air movement, No added sounds Cardiovascular: Regular rate, Normal S1, Normal S2, No murmurs Abdominal/ : Active bowel sounds, Soft, no distention, no tenderness Extremities: No edema, Normal pulses, No tenderness/swelling Skin: No Significant rash, except past surgical scars Neuro: Normal speech, sensorimotor deficits none Psych/Mental Status: Mental status NL, Mood NL Nurse was there as tattoo identifier during examination Operations or Procedures Urine culture, no growth Liver ultrasound: Hepatic steatosis CT abdomen pelvis: Limited evaluation without contrast. Bilateral perinephric stranding / edema. Right renal striated nephrogram. Findings are suggestive of pyelonephritis. Correlate with appropriate lab values. Cholecystectomy. Splenomegaly Fat containing periumbilical and supraumbilical hernias as described. Condition at Discharge: Stable Final Diagnosis/Problems List Acute pyelonepritis, improving Lactic acidosis resolved Type 2 diabetes mellitus with hyperglycemia Essential hypertension Hyperlipidemia Glaucoma Transaminitis Splenomegaly Periumbilical hernia Supraumbilical hernia Periumbilical hernia containing fat Status post cholecystectomy Discharge Disposition: Home Discharge Instruct/Medications Diet: Consistent carbohydrate, Cardiac 2g Na,low cholest Activity: No Restrictions, As Tolerated Follow Up/Referral: FU with DC clinic and PCP Medications: Keflex Scheduled Atorvastatin Calcium (Atorvastatin Calcium), 1 TAB PO DAILY, (Reported) Gabapentin (Gabapentin), 1-3 CAP PO HS, (Reported) Hydrochlorothiazide (Hydrochlorothiazide), 1 TAB PO DAILY, (Reported) Lisinopril (Lisinopril), 10 MG PO DAILY, (Reported) Metformin Hydrochloride (Metformin Hcl), 1 TAB PO BID, (Reported) Pantoprazole Sodium Sesquihydr (Pantoprazole Sodium), 1 TAB PO DAILY, (Reported) Miscellaneous Medications Insulin Aspart (Novolog Flexpen Relion), 70 UNIT SC, (Reported) Discharge Statement: "Patient was advised to return to the ER or call 911 if any headaches, dizziness, shortness of breath, chest pain, abdominal pain, bleeding, fevers, or worsening of medical condition. Patient was counseled about treatment plan, medications, possible side effects, patientverbalized understanding. All questions were answered to the best of my ability. This discharge took greater then 30 minutes in planning, reviewing documentation, counseling the patient, and discussing with other team members." ASSESSMENT ASSESSMENT Assessment Acute pyelonepritis DAYANA RAO RESIDENT Aug 03, 2025 21:31 BLANCO ROBLEDO RESIDENT Aug 04, 2025 21:20
[2025-08-04] MEDS ORDERED: CEPH250C PO (21:17)
[2025-08-05 10:37] LABS: Hepatitis B Surface Antigen Negative (Negative)
== END 2025-08-03 17:15 | disposition home or self-care (01) | DRG 463 ==
LOC: ER 10:13 → OVERFLOW 22:17 → TELE-EAST 22:24
PROVIDERS: ADMIT Student in an Organized Health Care Education/Training Program; ATTEND Student in an Organized Health Care Education/Training Program
DX: N10 Acute pyelonephritis (principal); E87.20 Acidosis, unspecified; E11.65 Type 2 diabetes mellitus with hyperglycemia; E78.5 Hyperlipidemia, unspecified; R65.10 Systemic inflammatory response syndrome (SIRS) of non-infectious origin without acute organ dysfunction; I10 Essential (primary) hypertension; R74.01 Elevation of levels of liver transaminase levels; K42.9 Umbilical hernia without obstruction or gangrene; R16.1 Splenomegaly, not elsewhere classified; K43.9 Ventral hernia without obstruction or gangrene; Z90.49 Acquired absence of other specified parts of digestive tract; Z79.4 Long term (current) use of insulin; Z79.02 Long term (current) use of antithrombotics/antiplatelets; Z79.899 Other long term (current) drug therapy; Z79.84 Long term (current) use of oral hypoglycemic drugs
CPT/HCPCS: 36415; 74177; 76705; 80048; 80053; 80076; 80307; 81001; 82306; 82607; 82962; 83036; 83605; 83690; 84443; 85025; 85610; 86706; 87040; 87086; 87340; 96361; 96374; 99291; G0378; J0692; J1815; J2405